=== PATIENT | male | born 1955 | race Caucasian/White ===

== ENCOUNTER 2019-12-01 00:24 | Outpatient (CLI) | payer MEDICARE, OTHER, SELFPAY ==
[2019-12-01 18:40] LABS: SARS-CoV-2 RNA PCR Negative
== END 2019-12-01 00:25 | disposition home or self-care (01) ==
LOC: ANHCOVIDDT 00:25
PROVIDERS: PCP Internal Medicine; Visit Provider Internal Medicine Gastroenterology
DX: Z01.818 Encounter for other preprocedural examination (principal); Z11.59 Encounter for screening for other viral diseases
CPT/HCPCS: 87635; C9803; U0003

== ENCOUNTER 2019-12-04 05:41 | Day surgery (SDC) | payer MEDICARE, OTHER, SELFPAY ==
[2019-11-30 09:46] VITALS: BMI 28.4
[2019-12-04 06:22] VITALS: BP 138/94; PULSE 76; RESP 17; TEMP 35.9; O2SAT 97
[2019-12-04] MEDS: LACTATED RINGERS 1,000 ML 150 ML IV CONT (06:36)
--- NOTE | 2019-12-04 07:06 | WPDANESEPPF ---
Anes - Initial Pre Proc Eval Procedure: Operation Date: 10/07/19 08:30 Proposed Procedures p Screening Colonoscopy - Altaf Johnston MD Operation Date: 12/04/19 07:30 Proposed Procedures p Screening Colonoscopy - Altaf Johnston MD Date/Time: 12/04/19 07:06 Surgeon: Altaf Johnston MD Pre Op Diagnosis: Hx Colon Polyps Patient Data Age: 64 Gender: M Height: 1.78 m Weight: 91.5 kg Last Vital Signs Temp 35.9 C L 12/04/19 06:22 Pulse 76 12/04/19 06:22 Resp 17 12/04/19 06:22 BP 138/94 H 12/04/19 06:22 Pulse Ox 97 12/04/19 06:22 Allergies Allergy/AdvReac Type Severity Reaction Status Date / Time No Known Allergies Allergy Unknown Unverified 12/04/19 06:21 Home Medications Medication Instructions Recorded Confirmed Type No Home Medications 11/30/19 12/04/19 History Patient hx anesthesia problems: none Family hx anesthesia problems: none [facility] Past Medical History Medical History (Updated 12/04/19 @ 07:07 by Taz Greco MD) Hernia UMBILICAL Overweight (BMI 25.0-29.9) Social History Social History Smoking status: Never smoker Alcohol intake: current Anes - Eval Final PreProcedure Day of Procedure 12/04/19 07:06 Patient weight: overweight Heart: regular rate and rhythm Lungs: clear to auscultation and normal air movement Airway: Mallampati scale class II Neurological: alert and oriented Last oral intake: >/= 8 hours ASA classification: II Emergent: no Anesthetic plan: proceed Anesthesia type and monitoring: general GIVS Informed Consent: The patient's anesthetic plan and its attendant risks and benefits were discussed with the patient/family/POA. Questions were solicited and answers provided to the satisfaction of the patient/family/POA.
--- NOTE | 2019-12-04 07:27 | WPDGICN ---
Assessment and Plan Assessment and plan (1) History of colon polyps: Code(s): Z86.010 - Personal history of colonic polyps Status: Acute Assessment and Plan: Patient had adenomatous colon polyp in 2015. Plan is for colonoscopy today for surveillance. Follow-up colonoscopy suggested at 5 year intervals. GI Consult Note Consult date/time: 12/04/19 07:27 HPI: Edgardo Cortes is a 64 year old male Seen in evaluation at the request of Dr. Shekhar Mustafa. Patient has a history of a colon polyp identified by colonoscopy 5 years ago. His current weight appetite bowel movements are normal. He denies abdominal pain. He denies any blood in his stools. Family history is noncontributory. There is no family here history of colon polyps. Review of Systems Review of Systems: All systems reviewed & are unremarkable except as noted in HPI and below PMFSH Past Medical History Medical History Hernia UMBILICAL Overweight (BMI 25.0-29.9) Social History Social History Smoking status: Never smoker Alcohol intake: current Meds Home Medications and Allergies Home Medications Medication Instructions Recorded Confirmed Type No Home Medications 11/30/19 12/04/19 History Allergies Allergy/AdvReac Type Severity Reaction Status Date / Time No Known Allergies Allergy Unknown Unverified 12/04/19 06:21 Vital Signs Vital Signs - 24 hr 12/04/19 06:22 Temperature 35.9 C L Pulse Rate 76 Respiratory Rate 17 Blood Pressure 138/94 H Pulse Oximetry 97 Exam Narrative: Exam Narrative: Physical exam reveals patient to be alert. Vital signs stable. HEENT exam unremarkable. Lungs are clear to auscultation and percussion. Heart is without murmur or extra sounds. Abdominal exam bowel sounds are present soft nontender with no organomegaly. Digital external rectal exam is normal.
[2019-12-04 08:02] VITALS: BP 122/86; PULSE 59; RESP 22; O2SAT 97
[2019-12-04 08:12] VITALS: BP 145/84; PULSE 54; RESP 20; O2SAT 96
[2019-12-04 08:22] VITALS: BP 131/88; PULSE 50; RESP 18; O2SAT 97
== END 2019-12-04 08:44 | disposition home or self-care (01) ==
PROVIDERS: PCP Internal Medicine; Visit Provider Internal Medicine Gastroenterology
PROC: 0DJD8ZZ Inspection of Lower Intestinal Tract, Via Natural or Artificial Opening Endoscopic (ICD-10-PCS; CPT 45378; principal; 2019-12-04 07:30)
DX: Z12.11 Encounter for screening for malignant neoplasm of colon (principal); D12.2 Benign neoplasm of ascending colon; D12.4 Benign neoplasm of descending colon; K63.5 Polyp of colon; K57.30 Diverticulosis of large intestine without perforation or abscess without bleeding; K64.8 Other hemorrhoids
CPT/HCPCS: 45385; 88305; J2704; J7120

== ENCOUNTER → 2020-08-08 09:49 | Outpatient (REF) | payer MEDICARE, OTHER, SELFPAY | LOC: ANHLAB 09:49 | PROVIDERS: PCP Internal Medicine; Visit Provider Nurse Practitioner | DX: D04.61 Carcinoma in situ of skin of right upper limb, including shoulder (principal) | CPT/HCPCS: 88305 ==

== ENCOUNTER → 2020-08-25 15:24 | Outpatient (REF) | payer MEDICARE, OTHER, SELFPAY | LOC: ANHLAB 15:24 | PROVIDERS: PCP Internal Medicine; Visit Provider Nurse Practitioner | DX: C44.92 Squamous cell carcinoma of skin, unspecified (principal) | CPT/HCPCS: 88305 ==

== ENCOUNTER → 2020-09-08 14:11 | Outpatient (REF) | payer MEDICARE, OTHER, SELFPAY | LOC: ANHLAB 14:11 | PROVIDERS: PCP Internal Medicine; Visit Provider Nurse Practitioner | DX: L98.9 Disorder of the skin and subcutaneous tissue, unspecified (principal); R22.9 Localized swelling, mass and lump, unspecified | CPT/HCPCS: 88304; 88305; 88342 ==

== ENCOUNTER → 2021-11-07 14:52 | Outpatient (REF) | payer MEDICARE, OTHER, SELFPAY | LOC: ANHLAB 14:52 | PROVIDERS: PCP Internal Medicine; Visit Provider Nurse Practitioner | DX: L82.1 Other seborrheic keratosis (principal) | CPT/HCPCS: 88305 ==

== ENCOUNTER 2023-01-29 09:00 | Outpatient (NON) | payer MEDICARE, OTHER, SELFPAY | END 2023-01-29 09:01 | disposition home or self-care (01) | LOC: ANHLAB 01-30 14:15 | PROVIDERS: PCP Physician Assistant Medical; Visit Provider Nurse Practitioner | DX: C44.622 Squamous cell carcinoma of skin of right upper limb, including shoulder (principal) | CPT/HCPCS: 88305 ==

== ENCOUNTER 2023-02-11 14:56 | Outpatient (NON) | payer MEDICARE, OTHER, SELFPAY | END 2023-02-11 14:57 | disposition home or self-care (01) | LOC: ANHLAB 14:56 | PROVIDERS: PCP Physician Assistant Medical; Visit Provider Nurse Practitioner | DX: C44.622 Squamous cell carcinoma of skin of right upper limb, including shoulder (principal) | CPT/HCPCS: 88305; 88331 ==

== ENCOUNTER 2023-02-12 14:06 | Outpatient (NON) | payer MEDICARE, OTHER, SELFPAY | END 2023-02-12 14:07 | disposition home or self-care (01) | LOC: ANHLAB 02-13 14:14 | PROVIDERS: PCP Physician Assistant Medical; Visit Provider Nurse Practitioner | DX: D36.10 Benign neoplasm of peripheral nerves and autonomic nervous system, unspecified (principal) | CPT/HCPCS: 88304; 88342 ==

== ENCOUNTER 2023-07-03 10:36 | Outpatient (CLI) | payer MEDICARE, OTHER, SELFPAY ==
--- NOTE | ~2023-07-03 | CT_ITS ---
EXAMINATION: CT hand LT wo con DATE: 07/03/2023 11:18 INDICATION: Crush injury to the left hand TECHNIQUE: High resolution computed tomography (CT) of the left hand was performed without intravenou s contrast. Additional sagittal and coronal reconstructions were performed. The dose-length product w as 492.01 mGy-cm. COMPARISON: None FINDINGS: Bone alignment is normal. No fracture. 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 Prominent sclerotic bone island was pretreated margins in the scapho id. 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 Mild to moderate osteoarthritis at the remaining interphalang eal joints. There is mild osteoarthritis at the first carpometacarpal and at the first and third meta carpophalangeal joints. There is soft tissue swelling over the dorsum of the hand with lobulated high attenuation likely hematomas in the subcutaneous tissues dorsal to the second and third metacarpopha langeal joints, the latter larger measuring and 1.7 x 1.2 cm maximal transaxial dimensions. 3.6 cm pr oximal to distal IMPRESSION: 1. Subcutaneous hematomas dorsal to the second and third metacarpophalangeal joints. No acute osseous abnormality. 2. 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 3. 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 Reviewed, dictated and finalized at location A. NEERING AND OPERATIONS DIRECTOR IMPRESSION: 1. Subcutaneous hematomas dorsal to the second and third metacarpophalangeal devin ints. No acute osseous abnormality. 2. 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 3. 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
== END 2023-07-03 10:37 | disposition home or self-care (01) ==
LOC: ANHIMG 10:41
PROVIDERS: PCP Family Medicine; Visit Provider Nurse Practitioner Family
DX: S67.22XA Crushing injury of left hand, initial encounter (principal); X58.XXXA Exposure to other specified factors, initial encounter; M19.042 Primary osteoarthritis, left hand
CPT/HCPCS: 73200

== ENCOUNTER 2023-08-26 10:00 | Outpatient (RCR) | payer MEDICARE, OTHER, SELFPAY ==
--- NOTE | 2023-08-07 10:43 | OTOPEVAL1 ---
Assessment and note entered by KURT Castillo/Maxwell, CHT Evaluation Information Assessment Status Evaluation Diagnosis Swelling and stiffness left hand Subjective Information PHI: Patient sustained a crush injury to the left hand on 06/27/23. He is right handed. He reports nerve pain , feeling like his hand is on fire. Shooting pain from the wrist to the fingers. Difficulties with gripping and dexterity. Reported Pain Level Pain Score 5: Self Report Additional Pain Score Comments Patient reports constant 5/10 pain. Assessment OT Clinical Summary Patient referred to OT with left hand pain, weakness, and stiffness following a crush injury ~ 6 weeks ago. He has been instructed in active and passive ROM of the fingers. He struggled to complete 10 reps due to sharp nerve pains in the hand. At the end of our session he was able to make a fist, however. Continued skilled OT indicated for use of modalities, progression of HEP, and therapeutic exercise and activities to facilitate optimal functional hand use. Plan of Care Interventions Therapeutic Exercise,Manual Therapy,Therapeutic Activities,Hot Pack/Cold Pack,Paraffin OT Services Indicated Yes Treatment Frequency and 1x/week for 4 visits Duration These treatments will address the objective and functional deficits as defined above. The patient will be advanced safely and appropriately in order for the patient to progress towards his/her prior level of function. Additional exercises will be introduced and as well as a comprehensive home exercise program upon discharge, if needed, ?to ensure carryover of functional gains achieved in the clinic. This treatment plan has been reviewed and agreement upon by the patient.
--- NOTE | 2023-08-28 09:25 | OTOPDC ---
Assessment and note entered by Jak Major, OTR/Maxwell, T Discharge Summary 08/28/23 OT Clinical Summary Patient cancelled his re-assessment stating his hand was doing better and he was ready to be discharged. Patient attended 4 sessions and was very compliant with his HEP. Gross fist ROM returned to normal limits. He continued to have ~2 .5-3 cm gap with a hook fist. 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 No further skilled OT indicated at this time. D/C with patient independent with HEP. Plan of Care OT Services Indicated No
== END 2023-08-28 10:51 | disposition home or self-care (01) ==
LOC: ANHOT 10:00
PROVIDERS: PCP Family Medicine; Visit Provider Plastic Surgery
DX: S61.412D Laceration without foreign body of left hand, subsequent encounter (principal); M25.642 Stiffness of left hand, not elsewhere classified; M79.89 Other specified soft tissue disorders
CPT/HCPCS: 97018; 97110; 97140; 97165

== ENCOUNTER 2023-09-25 09:23 | Outpatient (RCR) | payer MEDICARE, OTHER, SELFPAY ==
--- NOTE | 2023-09-27 17:36 | PTOPEVDC ---
Assessment and note entered by Jaylin Benites, PT Thank you for referring Edgardo Cortes to [facility].? An evaluation has been completed. No further treatment is needed. Evaluation Information Assessment Status Evaluation Diagnosis pain in right shoulder, osteoarthritis unspec Subjective Information Once recovered from broken ribs and prostate surgery, got on hormone therapy. Saturday after Thanksgihannah changed his diet and increased activity lost weight. Has a treadmill and free weights in basement. Was laying on back on weight bench was using 15 lbs for dumbbell chest press. Had a certain range where shoulder on the right would crunch . Went up to 20 lbs recently (09/15/23) states felt a burn after this. Still has a burn sensation in the right shoulder. when sleeping on right hand side will get up and pop in the shoulder without pain Assessment PT Clinical Summary Pt presents with c/o right shoulder pain that at worst is a 3/10. He reports this happened while working out with a chest press that reached far beyond neutral in horizontal abduction with a pop in the anterior shoulder. ROM is WNL, strength of all arm and RTC muscles is WNL both without increased pain. Crepitus within shoulder joint appears inflammation related versus structural. Pt advised in anti-inflammatory measures, appropriate muscle training form and patterns, and encouraged to consider a personalization specialist on an infrequent basis to assist in appropriate form and training for goals. Pt does not appear to require skilled PT services at this time. Plan of Care PT Services Indicated No
== END 2023-10-01 13:47 | disposition home or self-care (01) ==
LOC: ANHHIPT 09:23
PROVIDERS: PCP Nurse Practitioner Family; Visit Provider Family Medicine
DX: M25.511 Pain in right shoulder (principal); M19.019 Primary osteoarthritis, unspecified shoulder
CPT/HCPCS: 97110; 97161

== ENCOUNTER 2023-12-06 09:00 | Outpatient (RCR) | payer MEDICARE, OTHER, SELFPAY ==
--- NOTE | 2023-10-31 13:11 | OPREHPOC ---
Outpatient Therapy Plan of Care This is a Multidisciplinary Plan of Care that may contain components documented by all disciplines (PT, OT, and ST.) PT Goal 1 Goal Pt will be independent in HEP Pt will verbalize understanding of diagnosis and prognosis Target Visit 5 PT Problem 2 PT Problem #2 Pain PT Goal 1 Goal Pt will report greatest pain level at 2/10 or less to improve ADLs and activities Target Visit 5 PT Goal 2 Goal Pt will report resolution of pain to return to PLOF Target Visit 10 PT Problem 3 PT Problem #3 Impaired Range of Motion PT Goal 1 Goal Pt will demo equal ROM RUE to LUE within appropriate planes Target Visit 10 PT Goal 2 Goal Pt will demo thoracic lateral flex margie of 50% or greater Target Visit 10 PT Goal 1 Goal Pt will demo improved glenohumeral stability by reporting less crunching with ADLs Target Visit 10 PT Goal 2 Goal Pt will how improved posture by 50% throughout session without cueing Target Visit 10
--- NOTE | 2023-10-31 13:11 | PTOPEVAL1 ---
Assessment and note entered by Jaylin Benites, PT Evaluation Information Assessment Status Evaluation Diagnosis right shoulder pain Therapy condition abnormal postures right shoulder instability Onset ~4 months (July) Subjective Information Pt was here previously for right shoulder pain, evaluation initially didn't show deficits with pain level only being up to 2-3/10. At the time patient was educated on modification of activities to reduce inflammation and was discharged without plan of care being established. Approx one week after pt called and stated his shoulder had begun to worsen even using the education he was provided. Pt reports he ceased exercises since then for fear of increasing damage . Reports was doing supine rows, only letting UEs go to neutral but last bit of extension is when has the crunch sensation. Even with 5 lb weight rows would still crunch . Even bands with arms out to the side would crunch a little bit . Was not performing weight bearing exercises. Only activity that doesn't have the crunching is bicep curls. Pt reports had some discomfort with activity but the sound was worse than the pain. States has slight soreness that doesn't go away. Had begun working out in May 2023 and in July started crunching and progressed to soreness and staying sore, saw MD on 09/17/2023 and PT eval 09/25/2023. Discharged from this eval without plan of care. Reported Pain Level Pain Score 1: Self Report Assessment PT Clinical Summary Pt returns for reevaluation of right shoulder pain and discomfort. Reports stays sore and like a burn in the anterior right shoulder. No tenderness to palpation of structures. Demo's mildly decreased active ROM of flexion and abduction at end-range, functional internal and external rotation actively and improved further passively. No crunching , clicking, or cavitation noted with slow passive motion of RUE. Pt special testing for structural anomaly were all negative. Pt does demo decreased thoracic ROM, abnormal postures, increased tonicity, and increased joint play of the glenohumeral joint. Presentation suggestive of poor scapulohumeral
--- NOTE | 2023-12-06 11:15 | PTOPDC ---
Assessment and note entered by Jaylin Benites, PT Assessment Status Discharge Diagnosis right shoulder pain Onset ~4 months (July) Subjective Information Pt states is 99% better. States has not returned to weight lifting yet. Reported Pain Level Pain Score 0: Self Report Assessment PT Clinical Summary Pt has consistently attended therapy for shoulder rehab. Reports 99% improved overall, demo's understanding of posture and scapular position and progressing his strengthening toward his goals. He also reports himself at 0% disability and has met all his therapy and personal goals, with the highest discomfort being a 1/10, reporting as a fatigue/burning. Pt is happy with his progress and has the ability and knowledge to continue progress independently, thus pt is being discharged from skilled therapy services for program completion. Plan of Care PT Services Indicated No
== END 2023-12-06 14:18 | disposition home or self-care (01) ==
LOC: ANHHIPT 09:00
PROVIDERS: PCP Family Medicine; Visit Provider Family Medicine
DX: M25.511 Pain in right shoulder (principal); M19.019 Primary osteoarthritis, unspecified shoulder
CPT/HCPCS: 97014; 97110; 97140; 97161; 97530; 97750; G0283

== ENCOUNTER 2024-06-22 08:41 | Outpatient (CLI) | payer MEDICARE, OTHER, SELFPAY ==
[2024-06-22 19:44] LABS: Add Urine Microscopic? NO; Appearance Urine Clear (Clear); Bilirubin Urine Negative (Negative); Blood Urine Negative (Negative); Color Urine Yellow (Yellow); Glucose Urine UA Negative (Negative); Ketones Urine Negative (Negative); Leukocyte Esterase Ur Negative LEU/UL (Negative); Nitrate Urine Negative (Negative); Protein Urine Negative (Negative); Specific Grav Ur 1.022 (1.001-1.035); pH Urine 6.5 (5.0-9.0)
[2024-06-22 20:10] LABS: Alanine Aminotransferase 30 U/L (6-50); Albumin Level 4.6 g/dL (3.5-5.1); Alkaline Phosphatase 61 U/L (38-126); Anion Gap 7 mmol/L (4-12); Aspartate Amino Transferase 42 U/L (17-59); Blood Urea Nitrogen 21 mg/dL (9-20); Calcium 9.8 mg/dL (8.4-10.2); Carbon Dioxide 30 mmol/L (22-30); Chloride 101 mmol/L (98-107); Estimated Glomerular Filt Rate 55; Glucose 99 mg/dL (65-110); Potassium 4.2 mmol/L (3.4-5.0); Sodium 138 mmol/L (137-145)
== END 2024-06-22 08:42 | disposition home or self-care (01) ==
LOC: ANHGOSHLAB 08:42
PROVIDERS: PCP Internal Medicine; Visit Provider Internal Medicine
DX: C61 Malignant neoplasm of prostate (principal); I10 Essential (primary) hypertension; R74.8 Abnormal levels of other serum enzymes
CPT/HCPCS: 36415; 80053; 81003

== ENCOUNTER 2024-07-01 12:30 | Outpatient (RCR) | payer MEDICARE, OTHER, SELFPAY ==
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
--- NOTE | 2024-05-06 18:04 | OPREHPOC ---
Outpatient Therapy Plan of Care This is a Multidisciplinary Plan of Care that may contain components documented by all disciplines (PT, OT, and ST.) PT Problem 1 PT Problem #1 Knowledge Deficit PT Goal 1 Goal / Goal Update 1. Pt will demo good understanding of diagnosis and prognosis. 2. Pt will perform HEPs for lumbar stability, core and BLE strength indep. Target Visit 10 PT Problem 2 PT Problem #2 Pain PT Goal 1 Goal / Goal Update 1.Pt will report 1-2/10 worst pain in the morning and at night without taking pain medication. Target Visit 12 PT Problem 3 PT Problem #3 Impaired Range of Motion PT Goal 1 Goal / Goal Update Pt will demo WNL ROM of lumbar spine and BLE without pain and discomfort. Target Visit 12 PT Problem 4 PT Problem #4 Impaired Strength PT Goal 1 Goal / Goal Update Pt will demo 4/5 strength to all tested planes. Target Visit 12 PT Problem 5 PT Problem #5 Impaired Functional Mobil PT Goal 1 Goal / Goal Update 1. Pt will demo single leg standing without BUE support for 10 seconds or more indicating improved balance and stability. 2. Pt will report a score of 10% or less on the Modified Oswestry Disability Index Questionnaire. Target Visit 12
--- NOTE | 2024-06-24 17:14 | PTOPPROG ---
Assessment and note entered by Josselin Sylvester, PT Re-Eval Information Assessment Status Progress Diagnosis M54.50 ICD-10 Condition Codes (PT) Pain in low back M54.50,Radiculopathy, lumbar region M54.16,Radiculopathy, sacral and sacrococcygeal region M54.18,Pain in right hip M25 .551,Pain in left hip M25.552,Difficulty Walking R26.2,Abnormalities of gait and mobility R26.9, Weakness R53.1 Subjective Information Pt reports that pain is much better, does not go down to the butt area anymore. It is now concentrated in one part of the lower back on the L side. States he has a schedule to undergo a test to check his PSA levels to determine whether he will have to proceed with CA radiation. He states that he feels he can do his own strengthening exercises at home, he just wants to finish the remaining 2 sessions. Assessment PT Clinical Summary Pt has received a total of 10 treatment sessions and has gained good progress with therapy program in consideration to pain, mobility and strength. Demos improved standing and walking tolerance and mechanics. Pt requests to finish all the approved 12 visits prior to DC, he will benefit from continued education, feedback and modalities (prn) to improve carryover of HEPs and improve performance of safe functional mobility at home and in community. Plan of Care Interventions Check Out for Orthotic/Prosthetic,Electrical Stimulation,Gait Training,Hot Pack/Cold Pack, Manual Therapy,Mechanical Traction,Neuro Re- education,Patient/Caregiver Education,Therapeutic Activities,Therapeutic Exercise,Ultrasound,Other Other Interventions IASTM, Taping PT Services Indicated Yes Treatment Frequency and 2x/wk x 12 visits Duration These treatments will address the objective and functional deficits as defined above. The patient will be advanced safely and appropriately in order for the patient to progress towards his/her prior level of function. Additional exercises will be introduced and as well as a comprehensive home exercise program upon discharge, if needed, ?to ensure carryover of functional gains achieved in the clinic. This treatment plan has been reviewed and agreement upon by the patient.
--- NOTE | 2024-07-01 13:44 | PTOPDC ---
Assessment and note entered by Josselin Sylvester, PT Discharge Information Assessment Status Discharge Diagnosis M54.50 ICD-10 Condition Codes (PT) Pain in low back M54.50,Radiculopathy, lumbar region M54.16,Radiculopathy, sacral and sacrococcygeal region M54.18,Pain in right hip M25 .551,Pain in left hip M25.552,Difficulty Walking R26.2,Abnormalities of gait and mobility R26.9, Weakness R53.1 Subjective Information Pt reports back is feeling much better, did intensive workout yesterday and feeling sore muscles today. Denies any pain, just muscle soreness. Reported Pain Level Pain Score 0: Self Report Assessment PT Clinical Summary Patient received a total of 12 treatment sessions and have reported significant improvement in pain levels and mobility. Demos improved progress with lumbar and BLE ROMs, improved general strength and endurance. Patient also reports compliant with his personal exercise program at home, more cautious with his posture and body mechanics in performing bending and lifting tasks. Continued skilled PT interventions not necessary, patient DC 'd this date. Plan of Care PT Services Indicated No
== END 2024-07-01 14:31 | disposition home or self-care (01) ==
LOC: ANHHIPT 12:30
PROVIDERS: PCP Nurse Practitioner Family; Visit Provider Nurse Practitioner Family
DX: M54.50 Low back pain, unspecified (principal)
CPT/HCPCS: 97012; 97014; 97035; 97110; 97140; 97161; 97530; 97750; G0283

== ENCOUNTER 2024-10-27 08:44 | Outpatient (CLI) | payer MEDICARE, SELFPAY ==
--- NOTE | ~2024-10-27 | US_ITS ---
EXAMINATION: US carotid duplex BI DATE: 10/27/2024 09:29 INDICATION: Syncope and collapse. Vertigo. Left-sided subjective visual disturbance, numbness and wea kness. TECHNIQUE: Grayscale, color Doppler, and pulsed Doppler images of the cervical carotid arteries were obtained. The degree of vessel stenosis is placed in one of the following categories: normal, <50%, 5 0-69%, >=70% but less than near-occlusion, near-occlusion, or total occlusion. Note that percent sten osis relative to normal distal artery lumen diameter is indirectly measured from velocity measurement s as described by Abelino, et al. Radiology 2003; 229:340-346. COMPARISON: None. FINDINGS: RIGHT: The right common carotid artery (CCA) peak systolic velocity (PSV) is 47 cm/s. The right internal car otid artery (ICA) PSV is 55 cm/s. The right ICA end-diastolic velocity (EDV) is 18 cm/s. The right IC A/CCA PSV ratio is 1.2. Grayscale and color Doppler images yield an estimate of <50% diameter reducti on from plaque in the ICA. The external carotid artery (ECA) PSV is 46 cm/s. There is antegrade flow in the right vertebral artery. LEFT: The left CCA PSV is 37 cm/s. The left ICA PSV is 51 cm/s. The left ICA EDV is 19 cm/s. The left ICA/C CA PSV ratio is 1.4. Grayscale and color Doppler images yield an estimate of <50% diameter reduction from plaque in the ICA. The ECA PSV is 53 cm/s. There is antegrade flow in the left vertebral artery. IMPRESSION: 1. <50% stenosis in the right internal carotid artery. 2. <50% stenosis in the left internal carotid artery. Reviewed, dictated and finalized at location A.
--- OUTSIDE RECORDS SUMMARY | 2024-10-27 09:07 | XMS_ITS | Clinical Summary ---
Author Organization [facility] Address [facility] [place] [address] Care Team Providers Care Strap Folding Machine Operator Name Role Phone José Miguel Polo DO Primary Care Provider [phone] Allergies Active Allergy Reactions Criticality Noted Date Comments Spironolactone Other (see comment) 10/17/2024 Causes kidney problems Medications aspirin EC (ECOTRIN) 81 MG tablet Take 1 tablet (81 mg total) by mouth daily. Active colchicine 0.6 MG tablet TAKE 2 TABLETS BY MOUTH AT THE FIRST SIGN OF FLARE, FOLLOWED BY 1 TABLET AFTER 1 HOUR. MAX TOTAL DOSE OF 3 TABLETS ON DAY 1 THEN 1 TABLET TWICE DAILY THEREAFTER UNTIL RESOLVED 3 Active allopurinol (ZYLOPRIM) 100 MG tablet Take 1 tablet (100 mg total) by mouth daily. Active carvedilol (COREG) 3.125 MG tablet Take 1 tablet (3.125 mg total) by mouth 2 (two) times daily. Active hydroCHLOROthia zide (MICROZIDE) 12.5 MG capsule Take 1 capsule (12.5 mg total) by mouth every morning. Active losartan (COZAAR) 100 MG tablet Take 1 tablet (100 mg total) by mouth daily. Active nebivolol (BYSTOLIC) 5 MG tablet Take 1 tablet (5 mg total) by mouth daily. Active NIFEdipine ER (ADALAT CC) 30 MG 24 hr tablet Take 1 tablet (30 mg total) by mouth daily. Active Encounters Date Type Department Care Team Description 10/17/2024 1:52 PM CDT - 10/17/2024 3:35 PM CDT Emergency [facility] Emergency Room [id number] [place] [address] [address] Reynolds, Dizziness Discharge Disposition: Home or Self Care (Routine Discharge) 10/17/2024 Travel from Last 3 Months Immunizations Immunization Administration Dates Next Due Tdap (Boostrix) 06/27/2023 Social History Tobacco Use Types Packs/Day Years Used Date Smoking Tobacco: Never Smokeless Tobacco: Never Tobacco Cessation:Counseling Given: Not Answered Alcohol Use Standard Drinks/Week Comments Yes 0 (1 standard drink = 0.6 oz pur e alcohol) Sex and Gender Information Value Date Recorded Sex Assigned at Not on file Legal Sex Male 7:06 PM CDT Gender Identity Not on file Sexual Orientation Not on file Last Filed Vital Signs Vital Sign Reading Time Taken Comments Blood Pressure 125/80 10/17/2024 3:35 PM CDT Pulse 62 10/17/2024 3:35 PM CDT Temperature 36.2 C (97.2 F) 10/17/2024 2:06 PM CDT Respiratory Rate 17 10/17/2024 3:35 PM CDT Oxygen Saturation 92% 10/17/2024 3:35 PM CDT Inhaled Oxygen Concentration - - Weight 88.5 kg (195 lb) 10/17/2024 1:53 PM CDT Height 177.8 cm (5' 10 ) 10/17/2024 1:53 PM CDT Body Mass Index 27.98 10/17/2024 1:53 PM CDT Plan of Treatment Health Maintenance Due Date Last Done Comments Colorectal Cancer Screening Colonoscopy (10 Years) 1954 Hepatitis C 1972 Zoster Vaccines (1 of 2) 2004 RSV Immunization or 60+ Years (1 - Risk 60-74 years 1-dose series) 2014 Annual Medicare Wellness Visit 2019 Pneumococcal Vaccine: 50+ Ye ars (1 of 1 - PCV) 2019 COVID-19 Vaccine ( - 2023-2 5 season) 2024 DTaP, Tdap and Td Vaccines ( 2 - Td or Tdap) 06/27/2033 06/27/2023 Meningococcal B Vaccine Aged Out No l onger eligible based on patient's age to complete this topic Meningococcal Vaccine Aged Out No winston ko eligible based on patient's age to complete this topic RSV Immunizations Under 20 Months Aged Out No longer eligible based on patient's age to complete this topic Procedures Procedure Name Priority Date/Time Associated Diagnosis Comments CT HEAD WO CON STAT 10/17/2024 2:42 PM CDT TSH W/REFLEX STAT 10/17/2024 1:59 PM CDT MAGNESIUM STAT 10/17/2024 1:59 PM CDT COMPREHENSIVE METABOLIC PANEL STAT 10/17/2024 1:59 PM CDT CBC W/DIFF AUTOMATED STAT 10/17/2024 1:59 PM CDT from Last 3 Months Results * CT HEAD WO CON (10/17/2024 2:42 PM CDT) Anatomical Region Laterality Modality Head Computed Tomogra phy 10/17/2024 2:45 PM CDT Impressions 10/17/2024 2:50 PM CDT IMPRESSION: 1. No definite CT evidence for acute intracranial abnormality. 2. Chronic senescent changes. Please note that CT has limited sensitivity for the detection of acute ischemia Referred By: Interpreted By: Jackson Mcrae MD, 10/17/2024 2:45 PM Narrative 10/17/2024 2:50 PM CDT [facility] [address] [facility] [place] [address] EXAMINATION: CT of the head CLINICAL HISTORY: Left-sided numbness COMPARISON: None TECHNIQUE: CT examination of the head without contrast was performed with axial images obtained. A radiation dose lowering technique was used for this procedure, which may include, but is not limited to, dose reduction technique, automated exposure control, the use of iterative reconstruction, ALARA (As Low As Reasonably Achievable) techniques, and Image Gently techniques. FINDINGS: There is no evidence of acute intracranial hemorrhage, abnormal extra-axial collections, intracranial mass effect, or midline shift. There is mild to moderate volume loss with enlargement of the ventricles and extra-axial/subarachnoid spaces. There are a few scattered bilateral foci of periventricular and deep white matter hypoattenuation, probably related to chronic small vessel ischemic disease. Atherosclerotic calcifications of the intracranial arterial vasculature are evident. There is no definite CT evidence to suggest acute territorial infarction. The calvarium is unremarkable, without evidence of acute fracture. Bilateral basal ganglia calcifications. Minimal mucosal thickening in the left maxillary sinus. The visualized mastoid air cells, paranasal sinuses, and orbits are otherwise grossly unremarkable. Procedure Note Jackson Mcrae MD - 10/17/2024 [facility] [address] [facility] [place] [address] EXAMINATION: CT of the head CLINICAL HISTORY: Left-sided numbness COMPARISON: None TECHNIQUE: CT examination of the head without contrast was performed withaxial images obtained. A radiation dose lowering technique was used forthis procedure, which may include, but is not limited to, dose reductiontechnique, automated exposure control, the use of iterativereconstruction, ALARA (As Low As Reasonably Achievable) techniques, andImage Gently techniques. FINDINGS: There is no evidence of acute intracranial hemorrhage, abnormalextra-axial collections, intracranial mass effect, or midline shift. Thereis mild to moderate volume loss with enlargement of the ventricles andextra-axial/subarachnoid spaces. There are a few scattered bilateral fociof periventricular and deep white matter hypoattenuation, probably relatedto chronic small vessel ischemic disease. Atherosclerotic calcificationsof the intracranial arterial vasculature are evident. There is no definiteCT evidence to suggest acute territorial infarction. The calvarium isunremarkable, without evidence of acute fracture. Bilateral basal gangliacalcifications. Minimal mucosal thickening in the left maxillary sinus.The visualized mastoid air cells, paranasal sinuses, and orbits areotherwise grossly unremarkable. IMPRESSION: 1. No definite CT evidence for acute intracranial abnormality. 2. Chronic senescent changes. Please note that CT has limited sensitivity for the detection of acuteischemia Referred By: Interpreted By: Jackson Mcrae MD, 10/17/2024 2:45 PM us Armen Reynolds DO CT Final Res ult * TSH W/REFLEX (10/17/2024 1:59 PM CDT) TSH 2.229 0.358 - 3.74 uIU/ML 10/17/2024 2:45 PM CDT [facility] Comment: HIGH DOSES OF BIOTIN MAY INTERFERE WITH THIS TEST RESULT. CORRELATION TO CLINICAL HISTORY AND PRESENTATION RECOMMENDED. FREE T4 NOT INDICATED 10/17/2024 1:59 PM CDT us Armen Reynolds DO LABORATORY Final Res ult [facility] [address] [place] [address], * (ABNORMAL) COMPREHENSIVE METABOLIC PANEL (10/17/2024 1:59 PM CDT) GLUCOSE 144(H) 70 - 99 MG/DL 10/17/2024 2:39 PM CDT [facility] BUN 25(H) 7 - 18 MG/DL 10/17/2024 2:39 PM CDT [facility] CREATININE S/P/B 1.30 0.7 - 1.3 MG/DL 10/17/2024 2:39 PM CDT [facility] SODIUM S/P/B 136 136 - 145 MMOL/L 10/17/2024 2:39 PM CDT [facility] POTASSIUM S/P/B 3.9 3.5 - 5.1 MMOL/L 10/17/2024 2:39 PM CDT [facility] CHLORIDE S/P/B 99(L) 100 - 108 MMOL/L 10/17/2024 2:39 PM CDT [facility] CO2 26.1 21 - 32 MMOL/L 10/17/2024 2:39 PM CDT [facility] CALCIUM S/P/B 9.3 8.5 - 10.1 MG/DL 10/17/2024 2:39 PM [facility] BILIRUBIN TOTAL S/P/B 0.8 0.2 - 1.2 MG/DL 10/17/2024 2:39 PM [facility] TOTAL PROTEIN S/P/B 7.4 6.4 - 8.2 G/DL 10/17/2024 2:39 PM [facility] ALBUMIN S/P/B 4.0 3.4 - 5.0 G/DL 10/17/2024 2:39 PM [facility] AST 18 15 - 37 U/L 10/17/2024 2:39 PM [facility] ALT 22 16 - 60 U/L 10/17/2024 2:39 PM [facility] ALKALINE PHOSPHATASE S/P/B 66 50 - 136 U/L 10/17/2024 2:39 PM [facility] ANION GAP 10.9 5 - 15 MMOL/L 10/17/2024 2:39 PM [facility] BUN CREATININE RATIO 19.2 6 - 26 10/17/2024 2:39 PM [facility] A/G RATIO 1.2 1.0 - 2.0 RATIO 10/17/2024 2:39 PM [facility] GFR ESTIMATE 59(L) >90 ML/MIN/1.7 3 M2 10/17/2024 2:39 PM [facility] Comment: NOTE: eGFR is not calculated for patients <18 years of age or gender unknown. This is an estimated GFR calculation using the new CKD EPI creatinine equation without race and so does not require a correction factor for race. This estimated GFR should not be used for calculating drug doses. 10/17/2024 1:59 PM CDT us Armen Reynolds DO LABORATORY Final Res ult [facility] [address] [place] [address], * (ABNORMAL) CBC W/DIFF AUTOMATED (10/17/2024 1:59 PM CDT) WBC 8.09 4.4 - 11.0 x10'3/uL 10/17/2024 2:24 PM CDT [facility] RBC 4.79 4.50 - 5.90 x10'6/uL 10/17/2024 2:24 PM CDT [facility] HGB 15.6 14.0 - 17.5 G/DL 10/17/2024 2:24 PM CDT [facility] HCT 43.0 41.5 - 50.4 % 10/17/2024 2:24 PM CDT [facility] MCV 89.8 80.0 - 96.0 FL 10/17/2024 2:24 PM CDT [facility] MCH 32.6(H) 26.5 - 31.4 PG 10/17/2024 2:24 PM CDT [facility] MCHC 36.3(H) 31.9 - 34.8 G/DL 10/17/2024 2:24 PM CDT [facility] RDW 12.9 12.3 - 14.3 % 10/17/2024 2:24 PM CDT [facility] PLT 146(L) 151 - 353 x10'3/uL 10/17/2024 2:24 PM CDT [facility] MPV 9.1(L) 9.7 - 11.9 FL 10/17/2024 2:24 PM CDT [facility] RBC MORPHOLOGY NORMAL 10/17/2024 2:24 PM CDT [facility] PLT MORPH. NORMAL 10/17/2024 2:24 PM CDT [facility] WBC MORPHOLOGY NORMAL 10/17/2024 2:24 PM CDT [facility] LYMPHOCYTES % 27.2 15.8 - 45.0 % 10/17/2024 2:24 PM CDT [facility] NEUTROPHILS % 60.6 42.1 - 71.9 % 10/17/2024 2:24 PM CDT [facility] MONOCYTES % 9.3 5.7 - 12.5 % 10/17/2024 2:24 PM CDT [facility] EOSINOPHILS 2.0 0.0 - 5.6 % 10/17/2024 2:24 PM CDT [facility] BASOPHILS 0.7 0.0 - 1.3 % 10/17/2024 2:24 PM CDT [facility] ABS. NEUTROPHILS 4.90 1.40 - 6.00 x10'3/uL 10/17/2024 2:24 PM CDT [facility] IMMATURE GRANS % 0.2 0.0 - 0.5 % 10/17/2024 2:24 PM CDT [facility] ABS. LYMPHOCYTES 2.20 0.80 - 4.70 x10'3/uL 10/17/2024 2:24 PM CDT [facility] 10/17/2024 1:59 PM CDT us Armen Reynolds DO LABORATORY Final Res ult [facility] [address] [place] [address], * (ABNORMAL) MAGNESIUM (10/17/2024 1:59 PM CDT) MAGNESIUM 1.7(L) 1.8 - 2.4 MG/DL 10/17/2024 2:39 PM CDT [facility] 10/17/2024 1:59 PM CDT us Armen Reynolds DO LABORATORY Final Res ult [facility] [address] [place] [address], from Last 3 Months Insurance MEDICARE Care Teams Strap Folding Machine Operator Relationship Specialty Start Date End Date José Miguel Polo DO [address] [place] [address] PCP - General INTERNAL MEDICINE 10/17/24
--- OUTSIDE RECORDS SUMMARY | 2024-10-27 09:07 | XMS_ITS | Encounter Summary ---
Author Organization [facility] Address [address] [facility] [address] [place] [address] Phone Care Team Providers Care Cell Pourer Name Role Phone Asha Rausch MD PhD Unavailable + José Miguel Polo DO Primary Care Provider [phone] Encounter Details Date Type Department Care Team (Late st Contact Info) Description 09/11/2024 Results Follow-Up [facility] Urology [address] [facility] [address] [place] [address] Shamir Simon MD [address] [facility] [place] [address] Social History Tobacco Use Types Packs/Day Years Used Date Smoking Tobacco: Never Passive Smoke Exposure: Past Smokeless Tobacco: Never AUDIT-C Answer Date Recorded Q1: How often do you have a drink containing alcohol? 4 or more times a week 06/09/2024 Q2: How many drinks containi ng alcohol do you have on a typical day when you are drinking? 3 or 4 Q3: How often do you have si x or more drinks on one occasion? 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 Sexual Orientation Straight 08/16/2022 4: 36 PM DOWEL SETTING MACHINE OPERATOR documented as of this encounter Plan of Treatment Scheduled Procedures Name Priority Associated Diagnoses Date/Ti me COLONOSCOPY Open Access Malignant neoplasm of prostate (HCC) documented as of this encounter Visit Diagnoses Not on filedocumented in this encounter Care Teams Cell Pourer Relationship Specialty Start Date End Date José Miguel Polo DO [address] [facility] [address] [place] [address] PCP - General Internal Medicine 07/03/24 Asha Rausch MD PhD [address] [facility] [address] [place] [address] Medical Oncologist/Pizza Driver Medical Oncology 05/12/24 documented as of this encounter
--- OUTSIDE RECORDS SUMMARY | 2024-10-27 09:07 | XMS_ITS | Clinical Summary ---
Author Organization [facility] Address [address] [place] [address] Care Team Providers Care Logistics Engineer Name Role Phone Shekhar Mustafa MD Primary Care Provider [phone] Source Comments [facility],non-owned Affiliates and Associated Physician Practices is amultiple site organization consisting of ambulatory clinics and hospital sitesin [place], [place], [place] and [place]. This disclosure is being madepursuant to the Care Everywhere program and may not contain all information available regarding this patient. Last updated 18.[facility] Allergies No known active allergies Social History Tobacco Use Types Packs/Day Years Used Date Smoking Tobacco: Never Smokeless Tobacco: Never Sex and Gender Information Value Date Recorded Sex Assigned at Not on file Legal Sex Male 2:29 PM CDT Gender Identity Not on file Sexual Orientation Not on file Last Filed Vital Signs Vital Sign Reading Time Taken Comments Blood Pressure 132/78 02/09/2020 1:01 PM CDT Pulse 68 02/09/2020 1:01 PM CDT Temperature - - Respiratory Rate 12 02/09/2020 1:01 PM CDT Oxygen Saturation - - Inhaled Oxygen Concentration - - Weight 93.7 kg (206 lb 9.6 oz) 02/09/2020 1:01 P M CDT Height 177.8 cm (5' 10 ) 02/09/2020 1:01 PM CDT Body Mass Index 29.64 02/09/2020 1:01 PM CDT Plan of Treatment Health Maintenance Due Date Last Done Comments COLOGUARD (AGES 45-75) - COL ON CA SCREENING 1954 COLON MONITORING 1954 COLONOSCOPY - COLON CA SCREENING 1954 CT COLONOGRAPHY - COLON CA SCREENING 1955 Colorectal Cancer Screening 1954 FIT - COLON CA SCREENING 1954 FLEX SIG - COLON CA SCREENING 1954 LIPID TESTING 1955 MEDICARE AWV 12 MONTHS 1954 HEPATITIS C SCREENING 08/29/1972 DTAP/TDAP/TD VACCINES (1 - Tdap) 1973 PNEUMOCOCCAL VACCINE 50+ (1 of 1 - PCV) 2004 ZOSTER VACCINE (1 of 2) 2004 SCREENING FOR DIABETES 02/09/2020 COVID-19 VACCINE (1 - 2023-2 5 season) 2024 DEPRESSION SCREENING 07/15/2024 INFLUENZA VACCINE (Season Ended) 2025 Respiratory Syncytial Virus (RSV) Vaccine Pt: or over 60 yrs (1 - 1-dose 75+ series) 2029 HEPATITIS B VACCINE Aged Out No longe r eligible based on patient's age to complete this topic HIB VACCINE Aged Out No longer eligi ble based on patient's age to complete this topic HPV VACCINE Aged Out No longer eligi ble based on patient's age to complete this topic MENINGOCOCCAL (Group B) VACC INE SHARED DECISION-MAKING Aged Out No longer eligibl e based on patient's age to complete this topic MENINGOCOCCAL GROUPS A/C/Y/W VACCINE Aged Out No longer eligible b ased on patient's age to complete this topic Insurance [facility] MEDICARE COMMERCIAL GENERIC MEDICARE [facility] MEDICARE Care Teams Logistics Engineer Relationship Specialty Start Date End Date Shekhar Mustafa MD [address] [place] [address] [address] [place] [address] PCP - General 11/14/21
--- OUTSIDE RECORDS SUMMARY | 2024-10-27 09:07 | XMS_ITS | Encounter Summary ---
Author Organization [facility] Address [address] [place] [address] Care Team Providers Care Logistics Account Manager Name Role Phone Shekhar Mustafa MD Primary Care Provider [phone] Encounter Details Date Type Department Care Team (Late st Contact Info) Description 11/02/2021 Lab Requisition [facility] Care Pathology Lab [address] [place] [address] Keely Green MD [address] [place], [place] [id number] Illness, unspecified Social History Tobacco Use Types Packs/Day Years Used Date Smoking Tobacco: Never Smokeless Tobacco: Never Sex and Gender Information Value Date Recorded Sex Assigned at Not on file Legal Sex Male 2:29 PM CDT Gender Identity Not on file Sexual Orientation Not on file documented as of this encounter Plan of Treatment Not on file documented as of this encounter Procedures Procedure Name Priority Date/Time Associated Diagnosis Comments PATH CONSULT ON REFERRED CASE Routine 11/02/2021 1:59 PM CDT Illness, unspecified documented in this encounter Results * PATH CONSULT ON REFERRED CASE (11/02/2021 1:59 PM CDT) Final Diagnosis PROSTATE, LLB, NEEDLE BIOPSY (OSC: [id number], A; 10/30/2021): - Benign prostatic tissue PROSTATE, LLM, NEEDLE BIOPSY (OSC: [id number], B; 10/30/2021): - Benign prostatic tissue PROSTATE, LLA, NEEDLE BIOPSY (OSC: [id number], C; 10/30/2021): - Benign prostatic tissue PROSTATE, LB, NEEDLE BIOPSY (OSC: [id number], D; 10/30/2021): - Benign prostatic tissue PROSTATE, LM, NEEDLE BIOPSY (OSC: [id number], E; 10/30/2021): - Benign prostatic tissue PROSTATE, LA, NEEDLE BIOPSY (OSC: [id number], F; 10/30/2021): - Benign prostatic tissue PROSTATE, RB, NEEDLE BIOPSY (OSC: [id number], G; 10/30/2021): - Benign prostatic tissue PROSTATE, RM, NEEDLE BIOPSY (OSC: [id number], H; 10/30/2021): - Benign prostatic tissue PROSTATE, RA, NEEDLE BIOPSY (OSC: [id number], I; 10/30/2021): - Benign prostatic tissue PROSTATE, RLB, NEEDLE BIOPSY (OSC: [id number], J; 10/30/2021): - Benign prostatic tissue PROSTATE, RLM, NEEDLE BIOPSY (OSC: [id number], K; 10/30/2021): - Benign prostatic tissue PROSTATE, RLA, NEEDLE BIOPSY (OSC: [id number], L; 10/30/2021): - Benign prostatic tissue 11/02/2021 7:29 PM [facility] Microscopic Description and Comment Microscopic examination substantiates the final diagnosis. 11/02/2021 7:29 PM [facility] Clinical History PSA 6.2, PROSTATE VOLUME 33.7 11/02/2021 7:29 PM [facility] Materials Received Received are three prepared slides from [facility] [place] [facility] labeled [id number] (A1-C1). This is a 12-part prostate biopsy. All materials will be returned. 11/02/2021 7:29 PM [facility] Disclaimer The performance characteristics of all immunohistochemical and indirect immunofluorescence stains (if any) cited in this report were determined by the Histopathology Laboratory of [facility]. Some of these tests were developed by our own laboratory and have not been cleared or approved by the US Food and Drug Administration. The FDA does not require this test to go through premarket FDA review. These tests are used for clinical purposes. They should not be regarded as investigational or for research. This laboratory is certified under the Clinical Laboratory Improvement Amendments (CLIA) as qualified to perform high complexity clinical laboratory testing. This case has been personally reviewed and interpreted by the attending (teaching) pathologist. 11/02/2021 7:29 PM CDT [facility] Case Report Surgical Pathology Report Case: [id number] Authorizing Provider: Keely Green MD Collected: 11/02/2021 01:59 PM Ordering Location: [facility] Lab Received: 11/02/2021 01:59 PM Pathologist: Viridiana Roche MD Specimen: Slide Consultation 11/02/2021 7:29 PM CDT [facility] Embedded Images 11/02/2021 7:29 PM CDT [facility] Pathology/Cytolo gy SURGICAL PATHOLOGY CONSULTATION AND REPORT ON REFERRED SLIDES PREPARED ELSEWHERE / Unknown 11/02/2021 1:59 PM CDT 11/02/2021 1:59 PM CDT us Keely Green MD LAB - PATHOLOGY/CYTOLOGY ORDERAB LES Final Result [facility] [address] [phone] documented in this encounter Visit Diagnoses Diagnosis Illness, unspecified documented in this encounter Care Teams Logistics Account Manager Relationship Specialty Start Date End Date Shekhar Mustafa MD [address] [place] [address] [place] [address] PCP - General 11/14/21 documented as of this encounter
--- OUTSIDE RECORDS SUMMARY | 2024-10-27 09:07 | XMS_ITS | Referral Summary ---
Author Organization [facility] [address] Address [address] [place] [address] Care Team Providers Care Video Library Assistant Name Role Phone Asha Rausch MD PhD Unavailable + José Miguel Polo DO Primary Care Provider [phone] Encounters Date Type Department Care Team Description 09/11/2024 Results Follow-Up [facility] Urology [address] [place] [address] Office [facility] [address] [place] [phone] Shamir Simon MD 09/11/2024 9:10 AM PRINCIPAL MECHANICAL ENGINEER Lab [facility] [address] [place] [place] [address] Malignant neoplasm of prostate (HCC) 09/11/2024 8:40 AM PRINCIPAL MECHANICAL ENGINEER Office Visit [facility] Urology [address] [place] [phone] Shamir Simon MD Malignant neoplasm of prostate (HCC) (Primary Dx) from Last 3 Months Allergies No known active allergies Medications allopurinoL (ZYLOPRIM) 100 mg tabletIndications: prevention of acute gout attack Take 1 tablet (100 mg total) by mouth nightly 1 Active rosuvastatin (CRESTOR) 10 mg tabletIndications: hyperlipidemia Take 1 tablet (10 mg total) by mouth nightly 1 Active aspirin 81 mg enteric coated tabletIndications: TIA November 2020 Take 1 tablet (81 mg total) by mouth every morning Last dose 08/19/2022 PT STOPPED ON OWN Active losartan (COZAAR) 100 mg tablet 3 Active cyanocobalamin, vitamin B-12, (Vitamin B-12) 5,000 mcg tablet, sublingual 3 Active vitamin D3-vitamin K2 1,250-200 mcg capsule 3 Active prasterone, dhea, (DHEA) 25 mg capsule 3 Active tadalafiL (CIALIS) 5 mg tabletIndications: Erectile dysfunction after radical prostatectomy Take 1 tablet (5 mg total) by mouth daily 90 tablet 3 4 12/06/19 25 Active cyclobenzaprine (FLEXERIL) 10 mg tablet Take 1 tablet (10 mg total) by mouth 3 (three) times a day as needed for muscle spasms 4 Active hydroCHLOROthiazid e (MICROZIDE) 12.5 mg capsule Take 1 capsule (12.5 mg total) by mouth daily 4 Active nebivoloL (BYSTOLIC) 5 mg tablet Take 1 tablet (5 mg total) by mouth daily 4 Active carvediloL (COREG) 3.125 mg tablet Take 1 tablet (3.125 mg total) by mouth 2 (two) times a day with meals Active testosterone 20.25 mg/1.25 gram (1.62 %) gel in metered-dose pump Place on the skin Active Active Problems Problem Noted Date Diagnosed Date Malignant neoplasm of prostate 06/10/2024 Prostate cancer 07/19/2022 Overview (07/19/2022): Added automatically from request for surgery [id number] Elevated PSA 05/31/2022 Overview (05/31/2022): Added automatically from request for surgery [id number] Tinnitus of both ears 12/13/2020 Sensorineural hearing loss (SNHL) of both ears 0 12/13/2020 Dysfunction of both eustachian tubes 12/13/2020 Social History Tobacco Use Types Packs/Day Years Used Date Smoking Tobacco: Never Passive Smoke Exposure: Past Smokeless Tobacco: Never Tobacco Cessation:Counseling Given: Not Answered AUDIT-C Answer Date Recorded Q1: How often [...] CDT Gender Identity Male 08/16/2022 4:36 PM PRINCIPAL MECHANICAL ENGINEER Sexual Orientation Straight 08/16/2022 4: 36 PM PRINCIPAL MECHANICAL ENGINEER Last Filed Vital Signs Vital Sign Reading Time Taken Comments Blood Pressure 156/87 06/09/2024 9:42 AM PRINCIPAL MECHANICAL ENGINEER Pulse 63 06/09/2024 9:42 AM PRINCIPAL MECHANICAL ENGINEER Temperature 36.8 C (98.2 F) 06/09/2024 9:42 AM PRINCIPAL MECHANICAL ENGINEER Respiratory Rate 18 06/09/2024 9:42 AM PRINCIPAL MECHANICAL ENGINEER Oxygen Saturation 96% 06/09/2024 9:42 AM PRINCIPAL MECHANICAL ENGINEER Inhaled Oxygen Concentration - - Weight 94.3 kg (208 lb) 06/09/2024 9:42 AM PRINCIPAL MECHANICAL ENGINEER Height 177.8 cm (5' 10 ) 08/28/2022 9:39 AM PRINCIPAL MECHANICAL ENGINEER Body Mass Index 29.84 08/28/2022 9:39 AM PRINCIPAL MECHANICAL ENGINEER Plan of Treatment Scheduled Procedures Name Priority Associated Diagnoses Date/Ti me COLONOSCOPY Open Access Malignant neoplasm of prostate (HCC) Procedures Procedure Name Priority Date/Time Associated Diagnosis Comments PSA DIAGNOSTIC Routine 09/11/2024 9:17 AM PRINCIPAL MECHANICAL ENGINEER Malignant neoplasm of prostate (HCC) from Last 3 Months Results * PSA diagnostic (09/11/2024 9:17 AM PRINCIPAL MECHANICAL ENGINEER) PSA-Total 0.11 <=6.20 ng/mL Comment: Interpretive Data AGE SEX REFERENCE INTERVAL 0 minutes-150 years Female None 0 minutes-49 years Male None 50-59 years Male 0-3.90 60-69 years Male 0-5.40 70-79 years Male 0-6.20 80-150 years Male 0-6.20 The [employer] PSA Total assay procedure was used. Results from different manufacturers or methods may not be comparable. Serial testing should be performed using the same method. Current interpretive data last revised 21. Blood 09/11/2024 9:17 AM PRINCIPAL MECHANICAL ENGINEER 09/11/2024 9:48 AM PRINCIPAL MECHANICAL ENGINEER Neil OVERTONCH - 09/11/2024 10:42 AM PRINCIPAL MECHANICAL ENGINEER Fax to [phone] Shamir Simon MD LAB BLOOD ORDERABLES Fin al Result [facility] [address] [facility]. Department [place] [address] from Last 3 Months Insurance MEDICARE [facility] MEDICARE [employer] [id number] Advance Directives For more information, please contact: [phone] * Full Code (Latest Code Status on File) Date Activated Date Inactivated Comments 08/28/2022 6:44 PM 08/29/2022 4:02 PM Care Teams Video Library Assistant Relationship Specialty Start Date End Date José Miguel Polo DO [address] [facility] [address] [place] [address] PCP - General Internal Medicine 07/03/24 Asha Rausch MD PhD [address] [facility] [address] [place] [address] Medical Oncologist/Staff Readiness Officer Medical Oncology 05/12/24
--- OUTSIDE RECORDS SUMMARY | 2024-10-27 09:07 | XMS_ITS | Clinical Summary ---
Author Organization [facility] [employer] Address [address] [place] [address] Care Team Providers Care Tinning Machine Set Up Operator Name Role Phone Asha Rausch MD PhD Unavailable + José Miguel Polo DO Primary Care Provider [phone] Allergies No known active allergies Medications allopurinoL [...] (07/19/2022): Added automatically from request for surgery [id number] Elevated PSA 05/31/2022 Overview (05/31/2022): Added automatically from request for surgery [id number] Tinnitus of both ears 12/13/2020 Sensorineural hearing loss (SNHL) of both ears 0 12/13/2020 Dysfunction of both eustachian tubes 12/13/2020 Encounters Date Type Department Care Team Description 09/11/2024 9:10 AM INTERIOR DECORATOR Lab [facility] [address] [place] [address] Malignant neoplasm of prostate (HCC) 09/11/2024 8:40 AM INTERIOR DECORATOR Office Visit [facility] Urology [address] [place] [address] Office [address] [place] [phone] Shamir Simon MD Malignant neoplasm of prostate (HCC) (Primary Dx) 09/11/2024 Results Follow-Up [facility] Urology [address] [place] [address] Office Building [address] [place] [phone] Shamir Simon MD from Last 3 Months Surgical History Surgery Date Site/Laterality Comments HERNIA REPAIR 07/15/2002 - 07/14/2003 LAMINECTOMY 07/15/1995 - 07/14/1996 TONSILLECTOMY as a child RADICAL PROSTATECTOMY 08/28/2023 HAND SURGERY 06/14/2023 - 07/14/2023 Medical History Medical History Date Comments Allergic rhinitis Skin cancer Hypertension History of kidney problems kidne y stones TIA (transient ischemic attack) Sinusitis Hypertension Family History Medical History Relation Name Comments Breast cancer Daughter 1 premenopausal Other Daughter 2 hereditary pheo chromocytoma-paraganglioma syndrome Stroke Father Breast cancer Mother's Sister Anesthesia problems Neg Hx Relation Name Status Comments Daughter 1 Alive Daughter 2 Alive Father Mother's Sister Alive Social History Tobacco Use Types Packs/Day Years [...] CDT Gender Identity Male 08/16/2022 4:36 PM INTERIOR DECORATOR Sexual Orientation Straight 08/16/2022 4: 36 PM INTERIOR DECORATOR Obstetrics History Last Filed Vital Signs Vital Sign Reading Time Taken Comments Blood Pressure 156/87 06/09/2024 9:42 AM INTERIOR DECORATOR Pulse 63 06/09/2024 9:42 AM INTERIOR DECORATOR Temperature 36.8 C (98.2 F) 06/09/2024 9:42 AM INTERIOR DECORATOR Respiratory Rate 18 06/09/2024 9:42 AM INTERIOR DECORATOR Oxygen Saturation 96% 06/09/2024 9:42 AM INTERIOR DECORATOR Inhaled Oxygen Concentration - - Weight 94.3 kg (208 lb) 06/09/2024 9:42 AM INTERIOR DECORATOR Height 177.8 cm (5' 10 ) 08/28/2022 9:39 AM INTERIOR DECORATOR Body Mass Index 29.84 08/28/2022 9:39 AM INTERIOR DECORATOR Plan of Treatment Scheduled Procedures Name Priority Associated Diagnoses Date/Ti me COLONOSCOPY Open Access Malignant neoplasm of prostate (HCC) Health Maintenance Due Date Last Done Comments Colon Cancer Screening-Colonoscopy 1955 Depression Screening 1955 Hepatitis C Screening 1954 Hepatitis B Screening 1972 Pneumococcal vaccine 65+ (1 of 1 - PCV) 2004 Zoster Vaccine (1 of 2) 2004 Well Visit 65+ 2019 Fall Risk Assessment 08/29/2023 08/29/2022 Influenza Vaccine (Season Ended) 2025 DTaP/Tdap/Td Vaccine (2 - Td or Tdap) 06/27/2033 06/27/2023 Prostate Cancer Screening-PSA Discontinued , 06/10/2024, 12/25/2023, Additional history exists Procedures Procedure Name Priority Date/Time Associated Diagnosis Comments PSA DIAGNOSTIC Routine 09/11/2024 9:17 AM INTERIOR DECORATOR Malignant neoplasm of prostate (HCC) from Last 3 Months Results * PSA diagnostic (09/11/2024 9:17 AM INTERIOR DECORATOR) PSA-Total 0.11 <=6.20 ng/mL Comment: Interpretive Data [...] last revised 21. Blood 09/11/2024 9:17 AM INTERIOR DECORATOR 09/11/2024 9:48 AM INTERIOR DECORATOR Narrative [facility] - 09/11/2024 10:42 AM INTERIOR DECORATOR Fax to [phone] Shamir Simon MD LAB BLOOD ORDERABLES Fin al Result [facility] [address] [facility]. [place] [address] from Last 3 Months Insurance MEDICARE [facility] MEDICARE [facility] Advance Directives For more information, please contact: [phone] * Full Code (Latest Code Status on File) Date Activated Date Inactivated Comments 08/28/2022 6:44 PM 08/29/2022 4:02 PM Care Teams Tinning Machine Set Up Operator Relationship Specialty Start Date End Date José Miguel Polo DO [address] [email or web address] [address] [place] [address] PCP - General Internal Medicine 07/03/24 Asha Rausch MD PhD [address] [email or web address] [address] [place] [address] Medical Oncologist/Internet Marketing Coordinator Medical Oncology 05/12/24
--- OUTSIDE RECORDS SUMMARY | 2024-10-27 09:07 | XMS_ITS | Continuity of Care Document ---
Author Organization [facility] Address [address] [place] [address] Phone Care Team Providers Care Weights And Measures Inspector Name Role Phone Luiza Butt Unavailable Unavailable Advance Directives Directive Yes / No Effective Date File Name No Information Encounters Encounter Description Practice Location Reason(s) For Visit Diagnoses Date Provider Providers Copied on Encounter [facility], [address], [place], [place], [id number], [place] tel:[phone] [facility] No Information [address] , [address], [place], [address], [place]. tel:[phone] Referring Provider: Cl Henry, [address] [place] [address], [address]. tel:[phone] Family History Family Member Type Diagnosis Age At Onset No Information Payers Payer name Insurance type Covered democrat ID Authoriza tion(s) No Information Social History Type Description Quantity Date Captured Comments Sex Male Smoking Status No Information Chief Complaint And Reason For Visit No Information Reason For Referral Reason For Referral No Information History Of Present Illness Encounter Date Complaint History Of Prese nt Illness No Information Functional Status Date Functional Assessmen t No Information Instructions Date Instruction Additional Infor mation No Information Assessments Type Assessment Date No Information Patient Care Teams Name Effective Dates (start - stop) Status Members No Information
--- OUTSIDE RECORDS SUMMARY | 2024-10-27 09:07 | XMS_ITS | Clinical Summary ---
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 The patient underwent the [employer] my risk genetic testing for hereditary cancer syndromes due to a daughter with a SDHC mutation. The patient has a personal history of prostate cancer. He also has a family history of a daughter with premenopausal breast cancer as well as a maternal aunt with breast cancer. The testing the patient underwent included the genes responsible for PPG L syndrome, HBOC, Greene syndrome, HOXB13 associated prostate cancer risk, as well as most other common hereditary cancer syndromes. March 2024. History of prostate cancer 04/02/2024 Family history of malignant neoplasm of breast in first degree relative diagnosed when younger than 50 years of age 0904/02/2024 Family history of breast cancer in female 2023 Genetic testing 04/02/2024 Encounters Date Type Department Care Team Description 10/20/2024 External Device Data [facility] ABSTRACTION Provider, Abstract 09/30/2024 External Device Data [facility] ABSTRACTION Provider, Abstract 09/21/2024 External Device Data [facility] ABSTRACTION Provider, Abstract 09/08/2024 External Device Data [facility] ABSTRACTION Provider, Abstract 08/18/2024 External Device Data [facility] ABSTRACTION Provider, Abstract 08/18/2024 External Device Data [facility] ABSTRACTION Provider, Abstract 08/18/2024 External Device Data [facility] ABSTRACTION Provider, Abstract from Last 3 Months Family History Medical History Relation Name Comments Breast Cancer Daughter 2 Stroke Father Breast Cancer Maternal Aunt Breast cancer after age 50 Heart Disease Maternal Grandfather Heart Disease Maternal Grandmother Pulmonary embolism Maternal Uncle Heart Disease Paternal Grandfather Relation Name Status Comments Brother Alive Daughter 1 SDHC+ Alive Daughter 2 Alive Father Maternal Aunt Maternal Grandfather Maternal Grandmother Maternal Uncle Mother Paternal Grandfather Paternal Grandmother Son 1 Alive Son 2 Alive Social History Tobacco Use Types Packs/Day Years Used Date Smoking Tobacco: Never Assessed Feeling Safe Answer Date Recorded Are you in a relationship wi th someone who hurts you emotionally and/or physically? No 04/02/2024 Sex and Gender Information Value Date Recorded Sex Assigned at Not on file Legal Sex Male 2:49 PM CDT Gender Identity Not on file Sexual Orientation Not on file Plan of Treatment Health Maintenance Due Date Last Done Comments Pre-Diabetes and Diabetes Screening 1954 COLORECTAL SCREENING 1999 Colorectal Cancer Screening 1999 FIT-DNA Q 3 years 1999 FIT/FOBT Q 1 year 1999 Flex Sig/CT Colonography Q 5 years 1999 PNEUMOCOCCAL VACCINE 50+ YEARS (1 of 1 - PCV) 09/03/19 05 ZOSTER VACCINE (1 of 2) 2004 INFLUENZA VACCINE (#1) 2024 RSV VACCINE (60+ or ) (1 - 1-dose 75+ series) 2029 DTAP/TDAP/TD VACCINES (2 - Td or Tdap) 06/27/2033 Insurance MEDICARE PART A AND B [facility] [address]
== END 2024-10-27 08:45 | disposition home or self-care (01) ==
PROVIDERS: PCP Internal Medicine; Visit Provider Internal Medicine
DX: I65.23 Occlusion and stenosis of bilateral carotid arteries (principal)
CPT/HCPCS: 93880

== ENCOUNTER 2024-12-16 00:38 | Day surgery (SDC) | payer MEDICARE, SELFPAY ==
[2024-12-08 11:47] VITALS: BMI 27.8
--- OUTSIDE RECORDS SUMMARY | 2024-12-16 00:41 | XMS_ITS | Continuity of Care Document ---
Author Organization [facility] Address [address] [place] [address] Phone Care Team Providers Care Immigration Investigator Name Role Phone Luiza Butt Unavailable Unavailable Advance Directives Directive Yes / No Effective Date File Name No Information Encounters Encounter Description Practice Location Reason(s) For Visit Diagnoses Date Provider Providers Copied on Encounter [facility], [address], [place], [place], [id number], [place] tel:[phone] [facility] No Information [address] , [address], [place], [address], [place]. tel:[phone] Referring Provider: Cl Henry, [address] [place] [address], [address]. tel:[phone] Family History Family Member Type Diagnosis Age At Onset No Information Payers Payer name Insurance type Covered alliance party ID Authoriza tion(s) No Information Social History [...]
--- OUTSIDE RECORDS SUMMARY | 2024-12-16 00:41 | XMS_ITS | Encounter Summary ---
Author Organization [facility] Address [address] [place] [address] Care Team Providers Care Clamshell Engineer Name Role Phone Shekhar Mustafa MD Primary Care Provider [phone] Encounter Details Date Type Department Care Team (Late st Contact Info) Description 11/02/[address] [facility] Pathology Lab [address] [place] [address] Keely Green MD [address] [place], [place] [id number] Illness, unspecified Social History Tobacco Use Types [...] Final Diagnosis PROSTATE, LLB, NEEDLE BIOPSY (OSC: [id number], A; 10/30/2021): - Benign prostatic tissue PROSTATE, LLM, NEEDLE BIOPSY (OSC: [id number], B; 10/30/2021): - Benign prostatic tissue PROSTATE, LLA, NEEDLE BIOPSY (OSC: [id number], C; 10/30/2021): - Benign prostatic tissue PROSTATE, LB, NEEDLE BIOPSY (OSC: [id number], D; 10/30/2021): - Benign prostatic tissue PROSTATE, LM, NEEDLE BIOPSY (OSC: [id number], E; 10/30/2021): - Benign prostatic tissue PROSTATE, LA, NEEDLE BIOPSY (OSC: [id number], F; 10/30/2021): - Benign prostatic tissue PROSTATE, RB, NEEDLE BIOPSY (OSC: [id number], G; 10/30/2021): - Benign prostatic tissue PROSTATE, RM, NEEDLE BIOPSY (OSC: [id number], H; 10/30/2021): - Benign prostatic tissue PROSTATE, RA, NEEDLE BIOPSY (OSC: [id number], I; 10/30/2021): - Benign prostatic tissue PROSTATE, RLB, NEEDLE BIOPSY (OSC: [id number], J; 10/30/2021): - Benign prostatic tissue PROSTATE, RLM, NEEDLE BIOPSY (OSC: [id number], K; 10/30/2021): - Benign prostatic tissue PROSTATE, RLA, NEEDLE BIOPSY (OSC: [id number], L; 10/30/2021): - Benign prostatic tissue 11/02/2021 7:[address] [facility] PATHOLOGY LAB at 1929 CDT Microscopic Description and Comment Microscopic examination substantiates the final diagnosis. 11/02/2021 7:29 PM [facility] Clinical History PSA 6.2, PROSTATE VOLUME 33.7 11/02/2021 7:29 PM [facility] Materials Received Received are three prepared slides from [facility] labeled [id number] (A1-C1). This is a 12-part prostate biopsy. All materials will be returned. 11/02/2021 7:29 PM [facility] Disclaimer The performance characteristics of all immunohistochemical and indirect immunofluorescence stains (if any) cited in this report were determined by the Histopathology [facility] of [facility]. Some of these tests were developed by [...] attending (teaching) pathologist. 11/02/2021 7:[address] [facility] Case Report Surgical Pathology Report Case: [id number] Authorizing Provider: Keely Green MD Collected: 11/02/2021 01:59 PM Ordering Location: [facility] Lab Received: 11/02/2021 01:59 PM Pathologist: Viridiana Roche MD Specimen: Slide Consultation 11/02/2021 7:[address] [facility] Embedded Images 11/02/2021 7:[address] [facility] Pathology/Cytolo gy SURGICAL PATHOLOGY CONSULTATION AND REPORT ON REFERRED SLIDES PREPARED ELSEWHERE / Unknown 11/02/2021 1:59 PM CDT 11/02/2021 1:59 PM CDT us Keely Green MD LAB - PATHOLOGY/CYTOLOGY ORDERAB LES Final Result [facility] [address] [phone] documented in this encounter Visit Diagnoses Diagnosis Illness, unspecified documented in this encounter Care Teams Clamshell Engineer Relationship Specialty Start Date End Date Shekhar Mustafa MD [address] [place] [address] [place] [address] PCP - General 11/14/21 documented as of this encounter
--- OUTSIDE RECORDS SUMMARY | 2024-12-16 00:41 | XMS_ITS | Clinical Summary ---
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 The patient has hereditary PPGL syndrome. The patient underwent the [employer] my risk genetic testing for hereditary cancer [...] Encounters Date Type Department Care Team Description 12/08/2024 External Device Data [facility] ABSTRACTION Provider, Abstract 12/03/2024 External Device Data [facility] ABSTRACTION Provider, Abstract 12/02/2024 External Device Data [facility] ABSTRACTION Provider, Abstract 12/01/2024 External Device Data [facility] ABSTRACTION Provider, Abstract 10/27/2024 External Device Data [facility] ABSTRACTION Provider, Abstract 10/20/2024 External Device Data [facility] ABSTRACTION Provider, [...] 06/27/2033 Insurance MEDICARE PART A AND B [facility] [place] [address]
--- OUTSIDE RECORDS SUMMARY | 2024-12-16 00:41 | XMS_ITS | Clinical Summary ---
Author Organization [facility] Address [address] [place] [address] Care Team Providers Care Measurement Psychologist Name Role Phone Shekhar Mustafa MD Primary Care Provider [phone] Source Comments [facility],non-owned Affiliates and Associated Physician Practices is amultiple site organization consisting of ambulatory clinics and hospital sitesin [place], [place], [place] and [place]. This disclosure is being madepursuant to the Care Everywhere program and may not contain all information available regarding this patient. Last updated 18.[facility] Allergies No known active allergies Social History [...] P M CDT Height 177.8 cm (5' 10) 02/09/2020 1:01 PM CDT Body Mass Index [...] patient's age to complete this topic Insurance [facility] MEDICARE COMMERCIAL GENERIC MEDICARE [facility] MEDICARE Care Teams Measurement Psychologist Relationship Specialty Start Date End Date Shekhar Mustafa MD [address] [place] [address] [address] [place] [address] PCP - General 11/14/21
--- OUTSIDE RECORDS SUMMARY | 2024-12-16 00:41 | XMS_ITS | Clinical Summary ---
Author Organization [facility] Address [address] [place] [address] Care Team Providers Care Cad Programmer Name Role Phone Asha Rausch MD PhD Unavailable + José Miguel Polo DO Primary Care Provider [phone] Allergies No known active allergies Medications allopurinoL [...] dhea, (DHEA) 25 mg capsule 3 Active cyclobenzaprine (FLEXERIL) 10 mg tablet Take [...] metered-dose pump Place on the skin Active tadalafiL (CIALIS) 5 mg tabletIndications: Erectile dysfunction after radical prostatectomy Take 1 tablet (5 mg total) by mouth daily 90 tablet 3 5 10/29/19 26 Active Active Problems Problem Noted Date Diagnosed Date Malignant neoplasm of prostate 06/10/2024 Prostate cancer 07/19/2022 Overview (07/19/2022): Added automatically from request for surgery [id number] Elevated PSA 05/31/2022 Overview (05/31/2022): Added automatically from request for surgery [id number] Tinnitus of both ears 12/13/2020 Sensorineural hearing loss (SNHL) of both ears 0 12/13/2020 Dysfunction of both eustachian tubes 12/13/2020 Surgical History Surgery Date Site/Laterality Comments HERNIA [...] CDT Gender Identity Male 08/16/2022 4:36 PM EQUINE MANAGER Sexual Orientation Straight 08/16/2022 4: 36 PM EQUINE MANAGER Obstetrics History Last Filed Vital Signs Vital Sign Reading Time Taken Comments Blood Pressure 156/87 06/09/2024 9:42 AM EQUINE MANAGER Pulse 63 06/09/2024 9:42 AM EQUINE MANAGER Temperature 36.8 C (98.2 F) 06/09/2024 9:42 AM EQUINE MANAGER Respiratory Rate 18 06/09/2024 9:42 AM EQUINE MANAGER Oxygen Saturation 96% 06/09/2024 9:42 AM EQUINE MANAGER Inhaled Oxygen Concentration - - Weight 94.3 kg (208 lb) 06/09/2024 9:42 AM EQUINE MANAGER Height 177.8 cm (5' 10) 08/28/2022 9:39 AM EQUINE MANAGER Body Mass Index 29.84 08/28/2022 9:39 AM EQUINE MANAGER Plan of Treatment Scheduled Procedures Name Priority [...] Comments PSA DIAGNOSTIC Routine 09/11/2024 9:17 AM EQUINE MANAGER Malignant neoplasm of prostate (HCC) from Last 3 Months or Most Recently Relevant to Health Maintenance Results * PSA diagnostic (09/11/2024 9:17 AM EQUINE MANAGER) PSA-Total 0.11 <=6.20 ng/mL Comment: Interpretive Data [...] last revised 21. Blood 09/11/2024 9:17 AM EQUINE MANAGER 09/11/2024 9:48 AM EQUINE MANAGER Narrative [facility] - 09/11/2024 10:42 AM EQUINE MANAGER Fax to [phone] [facility] Department Tao Simon MD LAB BLOOD ORDERABLES [facility] al Result Performing Organization Address City/State/ZIP Co ms Phone Number [facility] [address] [facility]. Department [place] [address] from Last 3 Months or Most Recently Relevant to Health Maintenance Insurance MEDICARE [facility] MEDICARE [facility] [address] Advance Directives For more information, please contact: [phone] * Full Code (Latest Code Status on File) Date Activated Date Inactivated Comments 08/28/2022 6:44 PM 08/29/2022 4:02 PM Care Teams Cad Programmer Relationship Specialty Start Date End Date José Miguel Polo DO [address] [facility] [address] [place] [address] PCP - General Internal Medicine 07/03/24 Asha Rausch MD PhD [address] [facility] [address] [place] [address] Medical Oncologist/Aircraft Manager Medical Oncology 05/12/24
--- OUTSIDE RECORDS SUMMARY | 2024-12-16 00:41 | XMS_ITS | Referral Summary ---
Author Organization [facility] Address [address] [place] [address] Care Team Providers Care Systems Integration Analyst Name Role Phone Asha Rausch MD PhD Unavailable + José Miguel Polo DO Primary Care Provider [phone] Allergies No known active allergies Medications allopurinoL [...] (07/19/2022): Added automatically from request for surgery [id number] Elevated PSA 05/31/2022 Overview (05/31/2022): Added automatically from request for surgery [id number] Tinnitus of both ears 12/13/2020 Sensorineural hearing [...] CDT Gender Identity Male 08/16/2022 4:36 PM RESIDENT CARE DIRECTOR Sexual Orientation Straight 08/16/2022 4: 36 PM RESIDENT CARE DIRECTOR Last Filed Vital Signs Vital Sign Reading Time Taken Comments Blood Pressure 156/87 06/09/2024 9:42 AM RESIDENT CARE DIRECTOR Pulse 63 06/09/2024 9:42 AM RESIDENT CARE DIRECTOR Temperature 36.8 C (98.2 F) 06/09/2024 9:42 AM RESIDENT CARE DIRECTOR Respiratory Rate 18 06/09/2024 9:42 AM RESIDENT CARE DIRECTOR Oxygen Saturation 96% 06/09/2024 9:42 AM RESIDENT CARE DIRECTOR Inhaled Oxygen Concentration - - Weight 94.3 kg (208 lb) 06/09/2024 9:42 AM RESIDENT CARE DIRECTOR Height 177.8 cm (5' 10) 08/28/2022 9:39 AM RESIDENT CARE DIRECTOR Body Mass Index 29.84 08/28/2022 9:39 AM RESIDENT CARE DIRECTOR Plan of Treatment Scheduled Procedures Name Priority Associated Diagnoses Date/Ti me COLONOSCOPY Open Access Malignant neoplasm of prostate (HCC) Procedures Procedure Name Priority Date/Time Associated Diagnosis Comments PSA DIAGNOSTIC Routine 09/11/2024 9:17 AM RESIDENT CARE DIRECTOR Malignant neoplasm of prostate (HCC) from Last 3 Months or Most Recently Relevant to Health Maintenance Results * PSA diagnostic (09/11/2024 9:17 AM RESIDENT CARE DIRECTOR) PSA-Total 0.11 <=6.20 ng/mL Comment: Interpretive Data [...] last revised 21. Blood 09/11/2024 9:17 AM RESIDENT CARE DIRECTOR 09/11/2024 9:48 AM RESIDENT CARE DIRECTOR Narrative [facility] - 09/11/2024 10:42 AM RESIDENT CARE DIRECTOR Fax to [phone] Shamir Simon MD LAB BLOOD ORDERABLES Fin al Result [facility] [address] [facility]. [place] [address] from Last 3 Months or Most Recently Relevant to Health Maintenance Insurance MEDICARE [facility] MEDICARE [facility] Advance Directives For more information, please contact: [phone] * Full Code (Latest Code Status on File) Date Activated Date Inactivated Comments 08/28/2022 6:44 PM 08/29/2022 4:02 PM Care Teams Systems Integration Analyst Relationship Specialty Start Date End Date José Miguel Polo DO [address] [facility] [address] [place] [address] PCP - General Internal Medicine 07/03/24 Asha Rausch MD PhD [address] [facility] [address] [place] [address] Medical Oncologist/Insulation Board Coater Operator Medical Oncology 05/12/24
[2024-12-16 06:27] VITALS: BP 113/94; PULSE 63; RESP 18; TEMP 36.6; O2SAT 95
[2024-12-16] MEDS: LACTATED RINGERS 1,000 ML 150 ML IV CONT (06:34)
--- NOTE | 2024-12-16 07:12 | P.PNAN_ITS ---
Anes - Initial Pre Proc Eval Procedure: Operation Date: 12/16/24 07:30 Proposed Procedures p Colonoscopy - Tristen Mendoza MD Date/Time: 12/16/24 07:12 Surgeon: Tristen Mendoza MD Pre Op Diagnosis: hx of colon polyps Patient Data Age: 69 Gender: M Height: 1.78 m Weight: 89.4 kg Last Vital Signs Temp 97.8 F 12/16/24 06:27 Pulse 63 12/16/24 06:27 Resp 18 12/16/24 06:27 BP 113/94 H 12/16/24 06:27 Pulse Ox 95 12/16/24 06:27 O2 Del Method Room Air 12/16/24 06:27 Allergies Allergy/AdvReac Type Severity Reaction Status Date / Time amlodipine AdvReac lower Verified 12/16/24 06:20 extremity edema atorvastatin AdvReac short-term Verified 12/16/24 06:20 memory loss pravastatin AdvReac memory Verified 12/16/24 06:20 loss and myalgia Home Medications ?Medication ?Instructions ?Recorded ?Confirmed ?Type aspirin 81 mg chewable tablet 81 mg PO DAILY 01/31/21 12/16/24 History (Sandra Chewable Low Dose Aspirin) rosuvastatin 10 mg tablet 10 mg PO DAILY 01/31/21 12/16/24 History carvedilol 3.125 mg tablet 3.125 mg PO Q12H 04/21/24 12/16/24 History cyclobenzaprine 10 mg tablet 10 mg PO TID PRN muscle spasm #60 04/21/24 12/16/24 Rx tabs hydrochlorothiazide 12.5 mg capsule 12.5 mg PO DAILY 04/21/24 12/16/24 History loratadine 10 mg tablet (Claritin) 10 mg PO DAILY 04/21/24 12/16/24 History losartan 100 mg tablet 100 mg PO DAILY #90 tabs 05/20/24 12/16/24 Rx allopurinol 100 mg tablet See Rx Instructions .Route 05/25/24 12/16/24 Rx .COMPLEX #90 tabs coenzyme Q10 100 mg capsule 100 mg PO DAILY 06/22/24 12/16/24 History (CoQ-10) magnesium 200 mg tablet 200 mg PO DAILY 06/22/24 12/16/24 History mecobalamin (vitamin B12) 1,000 1,000 mcg PO DAILY 06/22/24 12/16/24 History mcg chewable tablet omega-3 fatty acids 1,000 mg PO DAILY 12/08/24 12/16/24 History turmeric 400 mg capsule 1,000 mg PO DAILY 12/08/24 12/16/24 History Patient hx anesthesia problems: none Family hx anesthesia problems: none Results Review: All pre-operative results and documents have been reviewed as part of the pre- operative evaluation. [facility] Past Medical History Medical History Chronic kidney disease (CKD) Mitral regurgitation Aortic insufficiency Ascending aortic aneurysm AC joint arthropathy Left-sided chest pain Prostate CA aug 2022 Urolithiasis Skin cancer History of colon polyps Hernia UMBILICAL Surgical History Surgical History H/O prostatectomy (09/04/22) History of laminectomy Social History Social History Smoking status: Never smoker Alcohol intake: current Drinks per week: 14 Substance use: never Substance use type: does not use Lack of Transportation: No Living arrangements: alone Occupation/Education: occupation Gender identity (if verbalized by the patient): Male Spiritual care concerns: No Anes - Eval Final PreProcedure Day of Procedure 12/16/24 07:12 Patient weight: overweight Lungs: normal air movement Airway: Mallampati scale class II Neurological: alert and oriented Last oral intake: >/= 8 hours ASA classification: III Emergent: no Anesthetic plan: proceed Anesthesia type and monitoring: general GIVS and standard monitoring Results Review: All pre-operative results and documents have been reviewed as part of the pre- operative evaluation. HTN, hx of TIA in the past w nml holter. Hx of AI/MR, aortic aneurysm 5 cm and being monitored but no intervention at this point. Pt reports nml stress test 2023. Informed Consent: The patient's anesthetic plan and its attendant risks and benefits were discussed with the patient/family/POA. Questions were solicited and answers provided to the satisfaction of the patient/family/POA.
--- NOTE | 2024-12-16 07:26 | PM.IMHP ---
H&P: HPI History of Present Illness Date/Time: 12/16/24 07:26 Chief Complaint: History of colon polyps Narrative: The patient has a history of colonic polyps, the last colonoscopy was Review of Systems Review of Systems: All systems reviewed & are unremarkable except as noted in HPI and below PMFSH Past Medical History Medical History Chronic kidney disease (CKD) Mitral regurgitation Aortic insufficiency Ascending aortic aneurysm AC joint arthropathy Left-sided chest pain Prostate CA aug 2022 Urolithiasis Skin cancer History of colon polyps Hernia UMBILICAL Surgical History Surgical History H/O prostatectomy (09/04/22) History of laminectomy Social History Social History Smoking status: Never smoker Alcohol intake: current Drinks per week: 14 Substance use: never Substance use type: does not use Lack of Transportation: No Living arrangements: alone Occupation/Education: occupation Gender identity (if verbalized by the patient): Male Spiritual care concerns: No Meds Home Medications and Allergies Home Medications ?Medication ?Instructions ?Recorded ?Confirmed ?Type aspirin 81 mg chewable tablet 81 mg PO DAILY 01/31/21 12/16/24 History (Sandra Chewable Low Dose Aspirin) rosuvastatin 10 mg tablet 10 mg PO DAILY 01/31/21 12/16/24 History carvedilol 3.125 mg tablet 3.125 mg PO Q12H 04/21/24 12/16/24 History cyclobenzaprine 10 mg tablet 10 mg PO TID PRN muscle spasm #60 04/21/24 12/16/24 Rx tabs hydrochlorothiazide 12.5 mg capsule 12.5 mg PO DAILY 04/21/24 12/16/24 History loratadine 10 mg tablet (Claritin) 10 mg PO DAILY 04/21/24 12/16/24 History losartan 100 mg tablet 100 mg PO DAILY #90 tabs 05/20/24 12/16/24 Rx allopurinol 100 mg tablet See Rx Instructions .Route 05/25/24 12/16/24 Rx .COMPLEX #90 tabs coenzyme Q10 100 mg capsule 100 mg PO DAILY 06/22/24 12/16/24 History (CoQ-10) magnesium 200 mg tablet 200 mg PO DAILY 06/22/24 12/16/24 History mecobalamin (vitamin B12) 1,000 1,000 mcg PO DAILY 06/22/24 12/16/24 History mcg chewable tablet omega-3 fatty acids 1,000 mg PO DAILY 12/08/24 12/16/24 History turmeric 400 mg capsule 1,000 mg PO DAILY 12/08/24 12/16/24 History Allergies Allergy/AdvReac Type Severity Reaction Status Date / Time amlodipine AdvReac lower Verified 12/16/24 06:20 extremity edema atorvastatin AdvReac short-term Verified 12/16/24 06:20 memory loss pravastatin AdvReac memory Verified 12/16/24 06:20 loss and myalgia Vital Signs Vital Signs - 24 hr 12/16/24 06:27 Temperature 97.8 F Pulse Rate 63 Respiratory Rate 18 Blood Pressure 113/94 H Pulse Oximetry 95 Oxygen Delivery Room Air Exam Const: General: cooperative and healthy appearing Resp: Effort & Inspection: normal respiratory effort and able to speak in complete sentences Auscultation: clear to auscultation bilaterally Cardio: Rate: regular rate Rhythm: regular rhythm GI: Inspection: normal to inspection GI Palp: No No hepatosplenomegaly present Auscultation: normal bowel sounds Rectal Exam: deferred Skin: General skin exam: normal color Psych: Appearance: grossly normal Mental Status: mental status grossly normal Assessment and Plan Assessment and plan (1) Colon cancer screening: Code(s): Z12.11 - Encounter for screening for malignant neoplasm of colon Status: Acute Assessment and Plan: The patient is deemed a good candidate for the procedure. Consent signed. Will proceed.
--- NOTE | 2024-12-16 07:44 | S_PTH ---
PATIENT: Edgardo Cortes LOC: [facility] #:[id number] AGE/SX: 69/M ROOM: RE12/16/[address]: Tristen Mendoza MD : [id number] BED: DIS: 12/16/2024 SPEC #: [id number] RECD: 12/16/24 07:57 STATUS: ART RETennille #: [id number] SYBIL: 12/16/24 07:[address]: Tristen Mendoza DEPT: [facility] Surgical RECD BY: Faby Veras ENTERED: 12/16/24 07:58 SP TYPE: Surgical OTHR DR: José Miguel Polo DO Tissues: A - Colon Polypectomy B - Colon Polypectomy Procedures: Hematoxylin and Eosin Stain Gross and Microscopic Level 4
[2024-12-16 07:45] VITALS: BP 113/66; PULSE 60; RESP 19; O2SAT 96
[2024-12-16 07:55] VITALS: BP 108/68; PULSE 57; RESP 16; O2SAT 97
[2024-12-16 08:05] VITALS: BP 119/69; PULSE 56; RESP 20; O2SAT 97
== END 2024-12-16 08:12 | disposition home or self-care (01) ==
PROVIDERS: PCP Internal Medicine; Referring Provider Internal Medicine; Visit Provider Internal Medicine Gastroenterology
PROC: 0DJD8ZZ Inspection of Lower Intestinal Tract, Via Natural or Artificial Opening Endoscopic (ICD-10-PCS; CPT 45378; principal; 2024-12-16 07:30)
DX: Z12.11 Encounter for screening for malignant neoplasm of colon (principal); D12.0 Benign neoplasm of cecum; D12.2 Benign neoplasm of ascending colon; K57.30 Diverticulosis of large intestine without perforation or abscess without bleeding; I12.9 Hypertensive chronic kidney disease with stage 1 through stage 4 chronic kidney disease, or unspecified chronic kidney disease; N18.9 Chronic kidney disease, unspecified; I34.0 Nonrheumatic mitral (valve) insufficiency; I35.1 Nonrheumatic aortic (valve) insufficiency; Z79.82 Long term (current) use of aspirin; Z98.890 Other specified postprocedural states; Z86.79 Personal history of other diseases of the circulatory system; Z85.46 Personal history of malignant neoplasm of prostate; Z85.828 Personal history of other malignant neoplasm of skin; Z86.73 Personal history of transient ischemic attack (TIA), and cerebral infarction without residual deficits
CPT/HCPCS: 45385; 88305; J2003; J2704; J7120

== ENCOUNTER 2025-06-22 08:37 | Outpatient (CLI) | payer MEDICARE, SELFPAY ==
[2025-06-22 13:05] LABS: Hematocrit 46.8 % (42.0-52.0); Hemoglobin 16.4 g/dL (14.0-18.0); Immature Granulocyte Percent A 0.4 % (0-0.5); Lymphocytes Absolute Auto 2.04 K/mm3 (0.9-3.2); Mean Corpuscular HGB Conc 35.0 g/dl (32-36); Mean Corpuscular Hemoglobin 32.2 pg (26-34); Mean Corpuscular Volume 91.8 fl (80-100); Nucleated Red Blood Cells Absolute Auto 0.030 K/mm3 (0.0-0.012); Nucleated Red Blood Cells Perc 0.5 % (0.0-0.2); Platelet Count Result 225 k/mm3 (150-375); Red Blood Count 5.10 M/mm3 (4.6-6.20); White Blood Count 5.6 K/mm3 (4.5-10.0)
[2025-06-22 13:08] LABS: Alanine Aminotransferase 32 U/L (6-50); Albumin Level 4.8 g/dL (3.5-5.1); Alkaline Phosphatase 65 U/L (38-126); Anion Gap 7 mmol/L (4-12); Aspartate Amino Transferase 50 U/L (17-59); Bilirubin,Total 1.2 mg/dL (0.2-1.3); Blood Urea Nitrogen 16 mg/dL (9-20); Calcium 9.8 mg/dL (8.4-10.2); Carbon Dioxide 30 mmol/L (22-30); Chloride 101 mmol/L (98-107); Cholesterol 201 mg/dL (0-200); Estimated Glomerular Filt Rate 60; Glucose 109 mg/dL (65-110); HDL Direct 41 mg/dL; Potassium 4.3 mmol/L (3.4-5.0); Sodium 138 mmol/L (137-145); Total Protein 8.5 g/dL (6.3-8.2); Triglycerides 194 mg/dL (<150)
[2025-06-22 13:38] LABS: Prostate Specific Antigen 0.2 ng/mL (< OR = 4.0)
== END 2025-06-22 08:38 | disposition home or self-care (01) ==
LOC: ANHGOSHLAB 08:39
PROVIDERS: PCP Internal Medicine; Visit Provider Internal Medicine
DX: R97.20 Elevated prostate specific antigen [PSA] (principal)
CPT/HCPCS: 36415; 80053; 80061; 82172; 84153; 85025